=== PATIENT | female | born 1970 | race Caucasian/White ===

== ENCOUNTER 2021-11-10 03:21 | Emergency (ER) | payer MEDICARE, OTHER ==
[~2021-11-10] VITALS: Ht 172.7 cm; Wt 164.1 kg
[2021-11-10 03:26] VITALS: BP 104/48
--- NOTE | 2021-11-10 04:02 | PHYS DOC ---
Past History Past Medical History: Anxiety, Bronchitis, Depression, Diabetes, Hypertension, Migraines, Pneumonia, Other Past Surgical History: Additional Past Surgical Histo: hernia repair; colon Smoking: Cigarettes, Less than 1pk/day, Quit Greater Than 1 Year Alcohol Use: Rarely Drug Use: None General Adult EDM: Chief Complaint: SHORTNESS OF BREATH HPI: HPI: ".. I was feeling short of breath tonight.. and felt like I had a fever.. I took some tylenol.. but I still feel achy. .. and like I am catching a bug... I dont think it is COVID because I got two Moderna shots... about 4 months ago..." Patient is a 51 year old female who presents with above hx and complaints of fever, chills, myalgia, arthralgia, malaise, and shortness of breath. Patient follows with Dr. Iggy Galeana in [place], [place]. patient has completed COVID vaccination x2 - Moderna. Has not had booster vaccination as yet. Patient has not gotten flu vaccination this season. Patient denies any recent travel. No specific ill contacts. Has had no recent changes in meds. Patient has significant past medical history of TIAs, ocular migraines, CVAs, hypertension, morbid obesity, diabetes, and deconditioning. Patient no longer smokes. Review of Systems: Review of Systems: Constitutional: Complains of fever or chills Eyes: Denies change in visual acuity HENT: History of nasal congestion Respiratory: History of shortness of breath Cardiovascular: Denies chest pain or edema GI: Denies abdominal pain, nausea, vomiting, bloody stools or diarrhea : Denies dysuria Musculoskeletal: Denies back pain or joint pain Integument: Denies rash Neurologic: Denies headache, focal weakness or sensory changes Endocrine: Denies polyuria or polydipsia Lymphatic: Denies swollen glands Psychiatric: Denies depression or anxiety Family History: Family History: Noncontributory to presentation Current Medications: Current Meds: See nursing for home meds Allergies: Allergies: Allergies Coded Allergies Type Severity Reaction Last Updated Verified No Known Drug Allergies 01/25/14 No Physical Exam: PE: Constitutional: no acute distress, non-toxic appearance. [] HENT: Normocephalic, atraumatic, bilateral external ears normal, oropharynx moist, no oral exudates, nose normal. [] Eyes: PERRLA, EOMI, conjunctiva normal, no discharge. [] Neck: Normal range of motion, no tenderness, supple, no stridor. More than 17 inches circumference Cardiovascular: Tachycardia heart rate regular rhythm, no murmur []. Bedside monitor monitor shows a sinus tachycardia Lungs & Thorax: Bilateral breath sounds equal apex with few scattered wheezes and basilar crackles and rhonchi on auscultation [] Abdomen: Bowel sounds hyperactive, soft, no tenderness, no masses, no pulsatile masses. [place] obese. Large pannus Skin: Warm, dry, no erythema, no rash. Tattoos. Venous stasis more and left leg. Back: No tenderness, no CVA tenderness. [] Extremities: No tenderness, no cyanosis, no clubbing, ROM intact, bilateral ankle edema. No cording appreciated Neurologic: Alert and oriented X 3, moves all extremities on request, has distal sensory, is ambulatory,, no focal deficits noted. [] Psychologic: Affect anxious, judgement normal, mood normal. [] Current Patient Data: Vital Signs: Vital Signs Date Time Temp Pulse Resp B/P (MAP) Pulse Ox O2 Delivery O2 Flow Rate FiO2 11/10/21 03:26 98.6 115 36 104/48 (66) 99 Nasal Cannula 3.5 EKG: EKG: EKG shows a sinus tachycardia rhythm at 105 bpm. Does have some bimodal P waves on the left leads no signs of acute STEMI or contralateral changes. Time of EKG is 429 hours my interpretation of second EKG shows a sinus tachycardia 103 bpm. Overall morphology is similar to prior EKG time of this EKG is 0551 hrs. There is some wavering baseline because of patient's pendulous breast Radiology/Procedures: Radiology/Procedures: [][address] [address] IMAGING REPORT Signed PATIENT: RIGOBERTO MARTINEZ ACCOUNT: [id number] : 1970 LOCATION: ER AGE: 51 SEX: F EXAM STATUS: REG ER ORD. PHYSICIAN: EZRA LINDER MD REASON: fever, cough, wheeze, dyspnea PROCEDURE: PORTABLE CHEST 1V AP chest x-ray COMPARISON: Chest x-ray March 10, 2013 HISTORY: Fever, cough, wheezing and dyspnea. FINDINGS: Heart size normal. Mediastinal silhouette is normal. No pneumothorax. No pleural effusions. No pulmonary consolidation. Mild interstitial linear type densities at the lung bases adjacent of diaphragms may be mild atelectasis, interstitial edema or changes of atypical viral infection. IMPRESSION: Mild bibasilar linear densities may be atelectasis versus interstitial edema or atypical infection such as viral pneumonia. Electronically signed by: Leodan Riddle MD (11/10/2021 5:08 AM) [facility] DICTATED AND SIGNED BY: LEODAN RIDDLE MD DATE: 11/10/21 0503 CC: EZRA LINDER MD; NON,STAFF ~MTH0 0 Heart Score: C/O Chest Pain: No HEART Score for Chest Pain: HEART Score for Chest Pain Response (Comments) Value History Moderately Suspicious 1 ECG Nonspecific Repolarizatio 1 Age >45 - < 65 1 Risk Factors 1 or 2 Risk Factors 1 Troponin < Normal Limit 0 Total 4 Risk Factors: Risk Factors: DM, Current or recent (<one month) smoker, HTN, HLP, family history of CAD, obesity. Risk Scores: Score 0 - 3: 2.5% MACE over next 6 weeks - Discharge Home Score 4 - 6: 20.3% MACE over next 6 weeks - Admit for Clinical Observation Score 7 - 10: 72.7% MACE over next 6 weeks - Early Invasive Strategies Course & Med Decision Making: Course & Med Decision Making Pertinent Labs and Imaging studies reviewed. (See chart for details) Patient practice deep breathing and incentive spirometry. If unable to obtain his incentive spirometry to buy a box of balloons and blow up 1 every hour while awake. Patient to use MDI 2 puffs 4 times a day. Patient to get home sat monitor and monitor for sats that are persistently below 90% will need reevaluation or home oxygen. Patient to take a Zithromax 250 a day for the next 5 days. ( Patient was loaded with 500 here.) Patient follow-up primary care. Patient return if any concerns. Patient encouraged tighter control on her g lucose. Levels. Tylenol ibuprofen needed for discomfort. Patient practice Covid isolation 10 days and symptoms free for 3 days. Impression: 1. Dyspnea 2. COVID Pneumonia 3. Viral Syndrome 4. Dehydration 5. Renal Insuf. BUN 36/Creat 1.8 6. DM - Gloc 309 [] Dragon Disclaimer: Dragon Disclaimer: This electronic medical record was generated, in whole or in part, using a voice recognition dictation system. Departure Departure: Referrals: LIVE AMIN DO (PCP) Scripts Azithromycin (ZITHROMAX) 250 Mg Tablet 250 MG PO DAILY for ANTI-BIOTIC, #5 TAB 0 Refills Prov: EZRA LINDER MD 11/10/21 Lori Disclaimer This chart was dictated in whole or in part using Voice Recognition software in a busy, high-work load, and often noisy Emergency Department environment. It may contain unintended and wholly unrecognized errors or omissions. EZRA LINDER MD Nov 10, 2021 04:01
[2021-11-10] MEDS ORDERED: ASPIRIN CHEWABLE 81 MG TABLET. PO ONE (04:15)
[2021-11-10] MEDS ORDERED: ALBUTEROL SULFATE 8GM INHALER. INH ONE ×2 (04:15→06:15)
--- NOTE | 2021-11-10 05:11 | RAD ---
AP chest x-ray COMPARISON: Chest x-ray March 10, 2013 HISTORY: Fever, cough, wheezing and dyspnea. FINDINGS: Heart size normal. Mediastinal silhouette is normal. No pneumothorax. No pleural effusions. No pulmonary consolidation. Mild interstitial linear type densities at the lung bases adjacent of di aphragms may be mild atelectasis, interstitial edema or changes of atypical viral infection. IMPRESSION: Mild bibasilar linear densities may be atelectasis versus interstitial edema or atypical infection such as viral pneumonia. Electronically signed by: Bernardo Riddle MD (11/10/2021 5:08 AM) [facility]
[2021-11-10 05:13] LABS: BASO % 0 % (0-3); EOS # 0.1 x10^3/uL (0.0-0.7); EOS % 2 % (0-3); HEMATOCRIT 38.3 % (36.0-47.0); HEMOGLOBIN 12.4 g/dL (12.0-15.5); LYMPH # 1.5 x10^3/uL (1.0-4.8); LYMPH % 24 % (24-48); MEAN CORPUSCULAR HEMOGLOBIN 28 pg (25-35); MEAN CORPUSCULAR HGB CONC 32 g/dL (31-37); MEAN CORPUSCULAR VOLUME 88 fL (79-100); MONO # 0.6 x10^3/uL (0.0-1.1); MONO % 9 % (0-9); NEUT % 65 % (31-73); PLATELET COUNT 190 x10^3/uL (140-400); RED BLOOD COUNT 4.36 x10^6/uL (3.50-5.40); RED CELL DISTRIBUTION WIDTH 15.3 % (11.5-14.5); WHITE BLOOD COUNT 6.2 x10^3/uL (4.0-11.0)
[2021-11-10 05:31] LABS: CALCIUM 9.7 mg/dL (8.5-10.1); CREATININE 1.8 mg/dL (0.6-1.0); GFR 29.4; POTASSIUM 4.5 mmol/L (3.5-5.1)
[2021-11-10 05:45] LABS: ALBUMIN 2.9 g/dL (3.4-5.0); DIRECT BILIRUBIN 0.1 mg/dL (0.0-0.2); TOTAL BILIRUBIN 0.3 mg/dL (0.2-1.0); TOTAL PROTEIN 7.5 g/dL (6.4-8.2)
[2021-11-10] MEDS ORDERED: AZIT250T PO (06:15)
[2021-11-10] MEDS ORDERED: AZITHROMYCIN 250 MG TABLET. PO ONE (06:15)
--- NOTE | 2021-11-10 06:28 | EKG ---
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
--- NOTE | 2021-11-10 06:38 | EKG ---
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
[2021-11-10] MEDS ORDERED: ONDANSETRON PF 4 MG/2 ML VIAL. ONE (06:50)
[2021-11-10 07:30] LABS: INFLUENZA A PATIENT NEGATIVE (NEGATIVE); INFLUENZA B PATIENT NEGATIVE (NEGATIVE)
== END 2021-11-10 07:08 | disposition home or self-care (01) ==
LOC: ER 03:21
DX: U07.1 COVID-19 (principal); J12.82 Pneumonia due to coronavirus disease 2019; E86.0 Dehydration; N28.9 Disorder of kidney and ureter, unspecified; E11.9 Type 2 diabetes mellitus without complications; I10 Essential (primary) hypertension; G43.909 Migraine, unspecified, not intractable, without status migrainosus; Z87.891 Personal history of nicotine dependence; Z98.890 Other specified postprocedural states
CPT/HCPCS: 71045; 80048; 80076; 82550; 83690; 83735; 83880; 84443; 84484; 85025; 85379; 85610; 85730; 87426; 87804; 93005; 94640; 99285; C9803; U0003; 94664